=== PATIENT | female | born 1965 | race Caucasian/White ===

== ENCOUNTER → 2018-01-03 | Outpatient (CLI) | payer BC ==
[~2018-01-03] MED LIST: ACHD5005 PO; CTLP20T PO; DOCU100T7 PO; GABA-486 PO; HYDR-34 PO; Ibuprofen PO; MULT-974 PO; SENN17.26 PO; SIMV40TA2 PO; ZLP10T PO; ZOLP12.5 PO
--- NOTE | 2018-01-03 22:47 | Diagnostic Imaging Report ---
PROCEDURE: US left lower extremity venous. TECHNIQUE: Multiple real-time grayscale images were obtained over the left lower extremity in various projections. Additional duplex Doppler and color Doppler images were also obtained. INDICATION: Leg pain and swelling There are no prior studies available for comparison. There is generally good blood flow and compressibility at all levels. There is no evidence for deep venous thrombosis. IMPRESSION: There is no evidence for a deep venous thrombosis of the left lower extremity. Dictated by: Dictated on workstation # [id number]
== END ==
LOC: RAD 19:17
PROVIDERS: ATTEND Nurse Practitioner Family
DX: M79.89 Other specified soft tissue disorders (principal)